=== PATIENT | male | born 2005 | race American Indian/Alaskan Native ===

== ENCOUNTER 2024-06-23 18:33 | Emergency (ER) | payer OTHER ==
[~2024-06-23] VITALS: Ht 167.6 cm; Wt 59.9 kg
[~2024-06-23 18:33] MED LIST: CIPHYDOTSU RIGHTEAR
[2024-06-23] MEDS ORDERED: Dexamethasone Sod Phos 10 MG/ML 1ML VIAL PO ONE (20:30)
[2024-06-23] MEDS ORDERED: BENZ100A PO (20:56)
== END 2024-06-23 21:05 | disposition home or self-care (01) ==
LOC: ER 18:33
DX: J40 Bronchitis, not specified as acute or chronic (principal)
CPT/HCPCS: 71046; 87430; 99283-25; J1100

== ENCOUNTER 2024-06-25 08:47 | Emergency (ER) | payer OTHER ==
[~2024-06-25] VITALS: Ht 167.6 cm; Wt 69.0 kg
[~2024-06-25 08:47] MED LIST changes: +BENZ100A PO
[2024-06-25] MEDS ORDERED: FLUTICASONE-SA1 EA12 INH (08:55)
[2024-06-25] MEDS ORDERED: BENZONATATE100 MG PO (08:55)
[2024-06-25] MEDS ORDERED: Ipratropium/Albuterol SulF 2.5-0.5MG/3 ML Amp INH ONE (09:25)
[2024-06-25] MEDS ORDERED: Benzonatate 100 MG Cap PO ONE (09:25)
[2024-06-25] MEDS ORDERED: Mag Hydrox/AL Hydrox/Simeth 30 ML UDC PO ONE (09:30)
[2024-06-25] MEDS ORDERED: Doxycycline Hyclate 100 MG TAB PO ONE (09:30)
[2024-06-25] MEDS ORDERED: Amoxicillin 500 MG Cap PO ONE (09:50)
[2024-06-25] MEDS ORDERED: AMOX500 PO (09:53)
[2024-06-25] MEDS ORDERED: CLAR500 PO (09:54)
[2024-06-25] MEDS ORDERED: Q-Tussin100 MG/5 M PO (09:54)
== END 2024-06-25 10:11 | disposition home or self-care (01) ==
LOC: ER 08:47
DX: J18.9 Pneumonia, unspecified organism (principal); J45.909 Unspecified asthma, uncomplicated; G40.909 Epilepsy, unspecified, not intractable, without status epilepticus; Z88.8 Allergy status to other drugs, medicaments and biological substances; Z79.51 Long term (current) use of inhaled steroids; Z79.899 Other long term (current) drug therapy
CPT/HCPCS: 94640; 94664; 99283-25; A9270

== ENCOUNTER 2024-07-19 19:04 | Emergency (ER) | payer OTHER ==
[~2024-07-19] VITALS: Ht 167.6 cm; Wt 59.9 kg
[~2024-07-19 19:04] MED LIST changes: +AMOX500 PO; +BENZONATATE100 MG PO; +CLAR500 PO; +FLUTICASONE-SA1 EA12 INH; +Q-Tussin100 MG/5 M PO
== END 2024-07-19 19:45 | disposition home or self-care (01) ==
LOC: ER 19:04
DX: S50.312A Abrasion of left elbow, initial encounter (principal); X58.XXXA Exposure to other specified factors, initial encounter; J45.909 Unspecified asthma, uncomplicated; L98.499 Non-pressure chronic ulcer of skin of other sites with unspecified severity
CPT/HCPCS: 99281